=== PATIENT | female | born 1965 | race Caucasian/White ===

== ENCOUNTER 2024-09-11 11:08 | Outpatient (CLI) | payer BC, SELFPAY ==
--- OUTSIDE RECORDS SUMMARY | 2024-09-11 11:37 | XMS_ITS | Referral Summary ---
Author Organization [facility] at the [facility] Address [address] [place] [address] Care Team Providers Care Tick Eradicator Name Role Phone Tyrell Morales MD Primary Care Provider Social History Tobacco Use Types Packs/Day Years Used Date Smoking Tobacco: Never Assessed Comments Unknown Sex and Gender Information Value Date Recorded Sex Assigned at Not on file Legal Sex Female 11:13 AM BATCHING OPERATOR Gender Identity Female 11/13/2023 10:18 AM CDT Sexual Orientation Not on file Plan of Treatment Not on file Procedures Procedure Name Priority Date/Time Associated Diagnosis Comments SCREENING MAMMOGRAM BILATERAL W JACEK W IMPLANTS Schedule Routine, Read Routine (OP Routine) 09/29/2023 7:51 AM BATCHING OPERATOR Encounter for screening mammogram for malignant neoplasm of breast from Last 3 Months or Most Recently Relevant to Health Maintenance Results * Screening Mammogram Bilateral W Jacek W Implants (09/29/2023 7:51 AM BATCHING OPERATOR) Anatomical Region Laterality Modality Breast Bilateral Mammography 10/09/2023 4:01 PM CDT Impressions 10/09/2023 4:01 PM CDT There is no mammographic evidence of malignancy. A 1 year screening mammogram is recommended. BI-RADS: 1 - Negative. The patient has been or will be contacted. The patient will be entered into a reminder system with a target due date of 1 year for her next mammogram. Electronically signed by: HA SALAZAR Yamileth 10/09/2023 4:01 PM CDT EXAMINATION: SCREENING MAMMOGRAM BILATERAL W JACEK W IMPLANTS ORDERING HEALTHCARE PROVIDER: TYRELL MORALES HISTORY: Routine screening mammography. COMPARISON: 09/20/2022, 09/15/2021, 09/14/2020. TECHNIQUE: CC and MLO views of both breasts, including implant-displaced views, were obtained with digital technique using digital breast tomosynthesis with C view. Computer aided detection was utilized. FINDINGS: DENSITY: The breasts are extremely dense, which lowers the sensitivity of mammography. BREASTS: There are bilateral subglandular silicone breast implants with extensive capsular calcifications. The presence of implants decreases sensitivity of mammography. There is no new suspicious finding in either breast on mammogram. us Tyrell Morales MD IMG MAMMO PROCEDURES Fi nal Result from Last 3 Months or Most Recently Relevant to Health Maintenance Insurance [place] [employer] Care Teams Tick Eradicator Relationship Specialty Start Date End Date Tyrell Morales MD [address] [place] [address] [address] PCP - General Family Medicine 07/31/23
--- OUTSIDE RECORDS SUMMARY | 2024-09-11 11:37 | XMS_ITS | Clinical Summary ---
Author Organization [facility] at the [facility] Address [address] [place] [address] Care Team Providers Care Local Az Truck Driver Name Role Phone yTrell Morales MD Primary Care Provider Surgical History Surgery Date Site/Laterality Comments HYSTERECTOMY Family History Medical History Relation Name Comments Breast cancer Paternal Grandmother Relation Name Status Comments Paternal Grandmother Social History Tobacco Use Types Packs/Day Years Used Date Smoking Tobacco: Never Assessed Comments Unknown Sex and Gender Information Value Date Recorded Sex Assigned at Not on file Legal Sex Female 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 CLERK Gender Identity Female 11/13/2023 10:18 AM CDT Sexual Orientation Not on file Obstetrics History Para Term AB IAB SAB Ectopic Multiple Livin g Live Births 0 0 0 0 0 0 0 0 0 0 0 Plan of Treatment Health Maintenance Due Date Last Done Comments Colon Cancer Screening-Colonoscopy 1966 Depression Screening 1966 Hepatitis C Screening 1966 Hepatitis B Screening 1984 Regular Well Visit/Exam 18-64 1984 Zoster Vaccine (1 of 2) 2016 Pneumococcal vaccine <65 (2 of 2 - PCV) 05/15/2016 05/15/2015, 07/23/2012 Covid-19 Vaccine (2023-2 5 season) 2024 07/02/2021, 06/08/2021 Influenza Vaccine (#1) 2024 0, 05/16/2019, 04/22/2018, Additional history exists Breast Cancer Screening-Mammogram 09/28/2024 09/29/2023, 09/20/2022, 09/16/2021, Additional history exists DTaP/Tdap/Td Vaccine (5 - Td or Tdap) 04/12/2028 04/12/2018, 12/19/2016, 07/23/2015, Additional history exists Procedures Procedure Name Priority Date/Time Associated Diagnosis Comments SCREENING MAMMOGRAM BILATERAL W JACEK W IMPLANTS Schedule Routine, Read Routine (OP Routine) 09/29/2023 7:51 AM PAPER SAMPLE CLERK Encounter for screening mammogram for malignant neoplasm of breast from Last 3 Months or Most Recently Relevant to Health Maintenance Results * Screening Mammogram Bilateral W Jacek W Implants (09/29/2023 7:51 AM PAPER SAMPLE CLERK) Anatomical Region Laterality Modality Breast Bilateral Mammography [...] her next mammogram. Electronically signed by: HA Carson 10/09/2023 4:01 PM CDT EXAMINATION: SCREENING MAMMOGRAM [...] [place] Care Teams Local Az Truck Driver Relationship Specialty Start Date End Date Tyrell Morales MD [address] [place] [address] [address] [place] [address] PCP - General Family Medicine 07/31/23
--- OUTSIDE RECORDS SUMMARY | 2024-09-11 11:38 | XMS_ITS | Continuity of Care Document ---
Author Organization [facility] Address [facility] [place] [address] Phone Care Team Providers Care Product Marketing Analyst Name Role Phone Roseanna Gracia OD Unavailable Unavailable Allergies, Adverse Reactions, Alerts Substance Reaction Status Criticality codeine Active No Information Medications Medication Instructions Dosage Effective Dates (start - stop) Status Comments alprazolam 0.25 mg tablet take 1 tablet by oral route 3 times every day 0.25 MG - Active estradiol 1 mg tablet take 1 tablet by o ral route every day 1 MG - Active sumatriptan 100 mg tablet take 1 tablet by oral route after onset of migraine; may repeat after 2 hours if headache returns,not to exceed 200mg in 24hrs 100 MG - Active Procedures Procedure Date Refraction Contact Lens Service VISION Level 3 Eye exam established comprehensive Advance Directives Directive Yes / No Effective Date File Name No Information Encounters Encounter Description Practice Location Reason(s) For Visit Diagnoses Date Provider Providers Copied on Encounter [facility] , [address] [place] [address], [id number], [place] tel:[phone] [facility] No Information Samia Condon. [address] [place], [place], [id number], [place]. tel:[phone] [facility] , [address] [place] [address], [id number], [place] tel:[phone] [facility] Vision Exam (chief complaint) Myopia, bilateral Mo Hernandez. [address] [place], [place], [id number], [place]. tel:[phone] Referring Provider: Mary Hassan, [address] [place], [address]. tel:[phone] [facility] , [address] [place], [place], [id number], [place] tel:[phone] [facility] Jess[facility] Moscoso Myopia, bilateral Sandra OD Humphrey. [address] [place], [place], [id number], [place]. tel:[phone] Family History Family Member Type Diagnosis Age At Onset No Information Payers Payer name Insurance type Covered constitution party ID Authorjose manuel lynn(s) VSP OD ONLY CI [id number] Social History Type Description Quantity Date Captured Comments Alcohol Use Details Unknown Caffeine Use Details Unknown Tobacco Use Status No Information Smoking Status No Information Sex Female Chief Complaint And Reason For Visit No Information Reason For Referral Reason For Referral No Information History Of Present Illness Encounter Date Complaint History Of Prese nt Illness Vision Exam The 57 year old patient presents for evaluation of Vision Exam in the [facility]. Still doing good with Clariti 1 day MF OD -2.25 H/ OS -3.50 H for distance/ computer. Denies floaters. No use of drops. Also still has glasses and takes off to read. BP 118/69. Functional Status Date Functional Assessmen t No Information Instructions Date Instruction Additional Infor mation Return in 1 year CEE Related to Myopia, bilateral Impression/Plan Related to Myopi a, bilateral Assessments Type Assessment Date No Information Patient Care Teams Name Effective Dates (start - stop) Status Members No Information
--- OUTSIDE RECORDS SUMMARY | 2024-09-11 11:38 | XMS_ITS | Data Portability ---
Author Organization [place] - [address] [facility] Address [address] [place] [address] Assessment No assessment recorded. Plan of Treatment Reminders Order Date Submit Date Provider Last Modified By Organization Details Last Modified Time Details Appointments None recorded. Lab None recorded. Referral None recorded. Procedures None recorded. Surgeries None recorded. Imaging None recorded. Medication Orders estradiol 1 mg tablet 2020 021 [id number], [id number], [place], [place], [id number], 1 11:51:09 estradiol 1 mg tablet 2019 [id number], [id number], [place], [place], [id number], 0 14:07:32 Patient TargetsNo targets recorded. Patient InstructionsNo instructions recorded. Reason for Referral None Reported. Results Created Date Observation Date Name Description Value Unit Range Abnormal Flag Note LastModifiedBy Organization Detail LastModifiedTime 09/21/1909/20/2022 MAMMO , scree leah, digit al, bilat eral No observ ation record ed. [facility] [place], [address], 09/24/2022 09:18:39 Result Notes None recorded. Problems No Known Problems Procedures Surgical History Date Name Laterality Status Provider Name and Address Organization Details Recorded Time 05/23/20 21 Date of Last Mammogram completed Grisel Treviño CMA [address] 04/05/2021 11:39:20 10/22/19 18 Date of Last Pap Smear completed Anna Gutierrez CMA ([facility]) [address] 03/31/2020 13:14:20 07/23/19 18 Date of Last Colonoscopy completed Anna Gutierrez CMA ([facility]) [address] 03/31/2020 13:13:29 breast augmentation completed Jazlyn Gutierrez TITLE I MATH TUTOR ([facility]) [address] 03/31/2020 13:12:06 Cholecystectomy completed Anna Gutierrez CMA ([facility]) [address] 03/31/2020 13:12:23 Hysterectomy completed Anna Gutierrez CMA ([facility]) [address] 03/31/2020 13:12:56 Imaging Results Imaging Date Name Status LastModified by Organiz ation Details LastModified Time 09/20/2022 MAMMO, screening, digital, bilateral completed [facility] [address] [place], [address], 09/24/2022 09:18:39 Procedure Notes None recorded. Medical Equipment None Reported. Allergies Allergen ID Allergen Name Allergen Category Reaction Reaction Severity Criticality Documentation Date Start Date Code Code System Note Provider Name and Address Organization Details Recorded Time 957533 codeine medicatio n Not available Not available Not available 03/31/2020 2670 RxNorm Anna Gutierrez TITLE I MATH TUTOR ([facility]) [place], [address] 0 13:10:35 Medications Name Sig Start Date Stop Date Status Note LastModified by Organization Details LastModified Time fluconazole 150 mg tablet TAKE 1 TABLET BY MOUTH EVERY DAY FOR 3 DAYS active Not Available Not Available No t Available benzonatate 200 mg capsule TAKE 1 CAPSULE BY MOUTH THREE TIMES DAILY FOR 10 DAYS active Not Available Not Available No t Available sumatriptan 100 mg tablet TK 1 T PO AOS OF MIGRAINE. MAY REPEAT IN 2 H PRN active Not Available Not Available No t Available ciprofloxac in 500 mg tablet TAKE 1 TABLET BY MOUTH EVERY 12 HOURS active Not Available Not Available No t Available sulfamethox azole 800 mg-trimetho prim 160 mg tablet 03/31 completed Not Available Not Available Not Available alprazolam 0.25 mg tablet TAKE 1 TABLET BY MOUTH FOUR TIMES DAILY NEEDED active Not Available Not Available No t Available estradiol 1 mg tablet TAKE 1 TABLET BY MOUTH EVERY DAY active Not Available Not Available No t Available cephalexin 500 mg capsule TAKE 1 CAPSULE BY MOUTH TWICE DAILY FOR 7 DAYS active Not Available Not Available No t Available albuterol sulfate HFA 90 mcg/actuati on aerosol inhaler INL 2 PUFFS PO Q 4 TO 6 H active Not Available Not Available No t Available amoxicillin 875 mg-potassiu m clavulanate 125 mg tablet 03/31 completed Not Available Not Available Not Available Fish Oil 1,000 mg (120 mg-180 mg) capsule Take 1 capsule every day by oral route. active Not Available Not Available No t Available Fluarix Quad (PF) 60 mcg (15 mcg x 4)/0.5 mL IM syringe ADM 0.5ML IM UTD 03/31 completed Not Available Not Available Not Available Paxlovid 300 mg (150 mg x 2)-100 mg tablets in a dose pack TAKE 3 TABLETS BY MOUTH TWICE DAILY FOR 5 DAYS DIRECTED active Not Available Not Available No t Available Vitals Date Recorded Body weight Body mass index (BMI) Body height Systolic blood pressure Diastolic blood pressure Provider Name and Address Organization Details Last Updated DateTime 03/31/2020 63956.69 g 22.5 kg/m2 165.1 cm 110 mm[Hg] 80 mm[Hg] Grisel Treviño CMA [address] 0 13:59:39 Date Recorded Body weight Body mass index (BMI) Body height Systolic blood pressure Diastolic blood pressure Provider Name and Address Organization Details Last Updated DateTime 04/05/2021 48831.3 g 20.5 kg/m2 165.1 cm 118 mm[Hg] 68 mm[Hg] Grisel Treviño CMA [address] 1 11:39:06 Social History Question Answer Notes LastModified by Organizat ion Details LastModified Time Tobacco Smoking Status Never Smoker Anna Gutierrez CMA ([facility]) null[address] 03/31/2020 13:15:17 What Is Your Level Of Alcohol Consumption? Occasional Information not available 03/31/2020 Which Illicit Or Recreational Drugs Have You Used? 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 No Information not available 03/31/2020 Presence Of Domestic Violence No Information not available 03/31/2020 Marital Status Single Informatio n not available 03/31/2020 Sex: Unknown Functional Status Question Answer Note LastModified by Organization D etails LastModified Time What is your exercise level? Moderate Information not available 03/31/2020 Mental Status None recorded. Family History Relationship Description Onset Age of this Age Resolved Age Notes LastModified by Organization Details LastModified Time Father Alcoholism [email or web address] Not avai lable 03/31/2020 14:00:56 Mother Alcoholism [email or web address] Not avai lable 03/31/2020 14:00:56 Mother Heart disease [email or web address] Not available 03/2020 14:02:02 Maternal Aunt Alzheimer's disease [email or web address] Not available 03/2020 14:01:11 Maternal Aunt Depressive disorder [email or web address] Not available 03/2020 14:01:52 Maternal Aunt Migraine [email or web address] Not available 03/31/2020 14:02:32 Paternal Aunt Alzheimer's disease [email or web address] Not available 03/2020 14:01:11 Paternal Aunt Blood coagulation disorder [email or web address] Not available 03/2020 14:01:24 Paternal Aunt Kidney disease [email or web address] Not available 03/2020 14:02:25 Paternal Aunt Neuropathy [email or web address] N ot available 03/31/2020 14:02:49 Paternal Aunt Cerebrovascu lar accident [email or web address] Not available 0 03/31/2020 14:02:58 Paternal Grandmother Malignant tumor of breast [email or web address] Not available 03/2020 14:01:40 Paternal Grandmother Hypertensive disorder [id number] Not available 03/2020 14:02:17 Sister Neuropathy [email or web address] Not avai lable 03/31/2020 14:02:49 Medical History Condition Response UTI Y Anesthesia complications Y Anxiety/Depression Y Headaches or Migraines Y Immunizations Y Abnormal Pap Smear Y Mammograms Y Asthma Y Allergies Y Gynecological History Statement/Question Response Date of Last Pap Smear 10/21/2017 Total lifetime number of sexual partners ? 2 Abnormal Pap Y STD/PID N Hormone Replacement Therapy Y Date of Last Mammogram 05/23/2021 Breast Lump no Age at Menarche 17 Current Control Method Hysterectom y History of Abnormal Pap Smear Y Date of Last Colonoscopy 07/23/2017 Abnormal Pap Y Date of Last Pap Smear 10/21/2017 Obstetrics History GPAL:G 0 P 0 0 0 0 Past Encounters Encounter ID Performer Location Encounter Start Date Encounter Closed Date Diagnosis/Indication Diagnosis SNOMED-CT Code Diagnosis ICD10 Code Diagnosis Note [id number] Mary Anne Grace NP [facility] [address] [place] [address] 03/31/2020 12:52:56 03/31/2020 14:10:26 Gynecologic examination 58728586 Z01.419 Pap smear with cotesting deferred per ASCCP guidelines Yearly MMG scheduled for May Annual bloodwork to be managed by her PCP Colonoscop y done at 51-normal. Repeat in 10 years. PCP to manage. Daily MV with Calcium and vitamin D encouraged . Calcium 1200 mg (in divided doses) and Vitamin D 800 IU (in divided doses) encouraged . Hormone re placement therapy 481247399 Z79.890 Pt doing well with current dose. Aware of risks, benefits and side effects. Plan to continue. [id number] Mary Anne Grace NP [facility] [address] [place] [address] 04/05/2021 11:12:32 04/05/2021 11:54:05 Gynecologic examination 71038825 Z01.419 Pap smear deferred per ASCCP guidelines Annual bloodwork to be managed by her PCP Colonoscop y - PCP to manage. Hormone re placement therapy 264762049 Z79.890 Does well with HRT- denies any problems. Aware of risks, benefits and potential side effects - will send refill. Screening for malignant neoplasm of breast 393985595 Z12.39 Yearly in May - managed by PCP Health Concerns Section Related Observation LastModified by Organization Detai ls LastModified Time None Recorded Concern Status LastModified by Organization Details LastModified Time None Recorded Advance Directives Directive None Recorded Payers Encounter Date Sequence Insurance Name Policy Number Policy Denis Covered Member ID Denis Member ID Guarantor Name 03/31/2020 1 [place] Angie Washington [id number] Angie Szymanskihn 04/05/2021 1 [place] Angie Washington [id number] Angie Washington Notes Date Note Type Note Provider Name and Address Organization Details Recorded Time 03/31/2020 text/html Pt presents toda y for a WWE. 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 On estrogen-has been doing well with it. Has had to increase it 1 year ago, Denies any questions or concerns. Denies pelvic pain, abnormal vaginal bleeding, or urinary concerns. SA without concerns. colonoscopy next 10 yrs. Mary Anne Grace NP [address] [facility], [place], [address], [facility] [place] 03/31/2020 14:12:28 04/05/2021 text/html Pt presents toda y for a WWE. 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 +SA partner: samedyspareunia: denies mammogram: 05/2020 (millennium)colono scopy next 10 yrs. Mary Anne Grace NP [address] [facility], [place], [address], [facility] [place] 04/05/2021 11:58:49 OBGyn Episode No OBEpisode recorded.
--- OUTSIDE RECORDS SUMMARY | 2024-09-11 11:38 | XMS_ITS | Patient Health Summary ---
Author Organization [facility] Address [address] [place] [address] Care Team Providers Care Real Estate Development Manager Name Role Phone Yaz Jimenez MD Primary Care Provider [phone] Note from [facility],non-owned Affiliates and Associated Physician Practices is amultiple site organization consisting of ambulatory clinics and hospital sitesin [place], [place], [place] and [place]. This disclosure is being madepursuant to the Care Everywhere program and may not contain all information available regarding this patient. Last updated 18.[facility] Allergies * Codeine(N&V) Medications * Be aware that medications may not be up to date on this document. Alwaysverify current medications with the patient. * multivitamin daily (THERAGRAN) tablet Take 1 Tab by mouth daily with food. * ALPRAZolam (XANAX) 0.25 MG tablet Take 0.25 mg by mouth nightly as needed. * SUMAtriptan (IMITREX) 100 MG tablet Take 100 mg by mouth once as needed. Indications: Migraine Headache * Biotin 2.5 MG tablets Take 2.5 mg by mouth once daily. * oxycodone-acetaminophen (PERCOCET) 5-325 MG tablet(Started 08/29/2012) Take 1 Tab by mouth every 6 hours as needed for Pain. * ibuprofen (MOTRIN) 600 MG tablet(Started 08/29/2012) Take 1 Tab by mouth every 6 hours as needed for Pain. * docusate sodium (COLACE) 100 MG capsule(Started 08/29/2012) Take 1 Cap by mouth 2 times daily. 1 refill left Social History Tobacco Use Types Packs/Day Years Used Date Smoking Tobacco: Never Alcohol Use Standard Drinks/Week Comments Yes 0 (1 standard drink = 0.6 oz pur e alcohol) Sex and Gender Information Value Date Recorded Sex Assigned at Not on file Gender Identity Not on file Sexual Orientation Not on file Last Filed Vital Signs Vital Sign Reading Time Taken Comments Blood Pressure 117/62 08/29/2012 9:43 AM VOLUNTEER FIREFIGHTER Pulse 72 08/29/2012 9:43 AM VOLUNTEER FIREFIGHTER Temperature 36.4 C (97.5 F) 08/29/2012 9:43 AM VOLUNTEER FIREFIGHTER Respiratory Rate 20 08/29/2012 9:43 AM VOLUNTEER FIREFIGHTER Oxygen Saturation 98% 08/29/2012 9:43 AM VOLUNTEER FIREFIGHTER Inhaled Oxygen Concentration - - Weight 63.5 kg (140 lb) 08/28/2012 9:16 AM VOLUNTEER FIREFIGHTER Height 165.1 cm (5' 5 ) 08/28/2012 9:16 AM VOLUNTEER FIREFIGHTER Body Mass Index 23.3 08/28/2012 9:16 AM VOLUNTEER FIREFIGHTER Procedures * CARDIAC RHYTHM STRIP ORDER(Performed 09/04/2012) * PATHOLOGY/GENETICS HISTORICAL-ONBASE(Performed 08/29/2012) * PATHOLOGY TISSUE EXAM (STL)(Performed 08/28/2012) * LAPAROSCOPIC TOTAL HYSTERECTOMY (TLH)(Performed 08/28/2012) Performed for Excessive or frequent menstruation * CBC W/O DIFFERENTIAL(Performed 08/28/2012) * HCG URINE QUALITATIVE - POINT OF CARE(Performed 08/28/2012) * BLOOD TYPE VERIFICATION(Performed 08/22/2012) * TYPE + SCREEN PANEL(Performed 08/22/2012) Performed for Preoperative examination, unspecified * CBC W AUTO DIFFERENTIAL(Performed 08/22/2012) Performed for Preoperative examination, unspecified * PATHOLOGY/GENETICS HISTORICAL-ONBASE(Performed 07/12/2012) * PATHOLOGY/GENETICS HISTORICAL-ONBASE(Performed 07/12/2012) Results * CARDIAC RHYTHM STRIP ORDER (09/04/2012 7:15 AM VOLUNTEER FIREFIGHTER) Narrative 09/04/2012 7:15 AM VOLUNTEER FIREFIGHTER Procedure Note Document, Scanned - 09/04/2012 7:15 AM CST Scanned Document CARDIAC SERVICES ORD ERABLES * PATHOLOGY/GENETICS HISTORICAL-ONBASE (08/29/2012) Only the most recent of3 resultswithin the time period is included. 08/29/2012 Narrative [facility] - 08/30/2012 12:23 PM VOLUNTEER FIREFIGHTER Historical Provider LAB - CHEMISTRY Judi BELL [facility] [address] * GROSS + MICRO EXAM (STL) (08/28/2012 12:30 PM VOLUNTEER FIREFIGHTER) Case Report Surgical Pathology Report Case: [id number] -- Authorizing Provider: Stacy arrieta, Ordering Provider: Stacy arrieta MD MD Ordering Location: [facility] Collected: 08/28/2012 12:30 PM Pathologist: Jamie Bañuelos MD Received: 08/28/2012 1:16 PM Signed Out: 08/29/2012 2:28 PM (Final) Specimen: Uterus w Tube and Ovary, uterus,cervix,bi l fallopian tubes 08/29/2012 2:28 PM VOLUNTEER FIREFIGHTER [facility] Final Diagnosis A. Uterus, cervix, hysterectomy: - Chronic cervicitis - Nabothian cyst Uterus, endometrium, hysterectomy: - Proliferative endometrium Uterus, myometrium, hysterectomy: - Leiomyoma Uterus, serosa, hysterectomy: - No pathologic diagnosis Fallopian tubes, right and left, bilateral salpingectomy: - No pathologic diagnosis YC/LISSY/timbo 08/29/2012 2:28 PM VOLUNTEER FIREFIGHTER [facility] Gross Description Submitted fixed in formalin in one container labeled with the patient's name Angie [place] and uterus, cervix, bilateral fallopian tubes, is a 100 gram uterus measuring 8 x 5.5 x 4 cm. Submitted separately in the same container are bilateral fallopian tubes each measuring 2.5 x 0.6 and 3.8 x 0.7 cm. The exocervix [3.5 x 2.7 cm] is covered by pink-shanks smooth mucosa with focal hemorrhage. There is a dark brown-shanks polypoid lesion protruding from the exocervix measuring 1.1 x 1 x 0.5 cm. The endocervical canal [4 cm in length with a diameter of 1.8 cm] is dilated and filled with hemorrhagic mucinous material. The endometrial cavity [2 cm from cornua to cornua and 3.5 cm in length] is covered by pink-shanks hemorrhagic endometrium with a average thickness of 0.3 cm. The myometrium has a maximal thickness of 1.8 cm and is grossly unremarkable. There serosa is smooth without adhesions. The bilateral fallopian tubes are patent and grossly unremarkable. Sewage Plant Attendant sections are submitted as follows: A1 - Anterior cervix with polypoid protrusion and intrauterine hemorrhage. A3 - Posterior lower uterine segment. A4 - Anterior endometrium. A5 - Posterior myometrium. A6 - Fallopian tubes. YC/mal 08/29/2012 2:28 PM VOLUNTEER FIREFIGHTER [facility] Microscopic Description Sections of the cervix show chronic inflammatory infiltrate with no evidence of dysplasia or malignancy. Some of the endocervical glands are cystically dilated. The endometrium is proliferative with no evidence of hyperplasia or malignancy. Myometrium has a focus of intramural leiomyoma with no evidence of increased mitosis, nuclear atypia or necrosis. Serosa is unremarkable. The fallopian tubes are unremarkable. YC/LISSY/timbo 08/29/2012 2:28 PM [facility] Synoptic Report 08/29/2012 2:28 PM [facility] Miscellaneous samples (specimen) HYSTERECTOMY AND BILATERAL SALPINGO-OOPHORECTO MY SPECIMEN / Unknown 08/28/2012 12:30 PM VOLUNTEER FIREFIGHTER 08/28/2012 1:16 PM VOLUNTEER FIREFIGHTER Stacy Mejias MD LAB - PATHOL OGY/CYTOLOGY ORDERABLES [facility] [address] [place] [address] * (ABNORMAL) CBC W/O DIFFERENTIAL (08/28/2012 9:15 AM VOLUNTEER FIREFIGHTER) WBC 15.8(H) 4.4 - 10.7 x10^9/L 08/28/2012 9:37 AM [facility] RBC 4.78 3.80 - 5.20 x10^12/L 08/28/2012 9:37 AM [facility] Hemoglobin 14.8 12.0 - 15.6 g/dL 08/28/2012 9:37 AM [facility] Hematocrit 42.9 35.9 - 45.5 % 08/28/2012 9:37 AM [facility] MCV 89.7 80.7 - 98.3 fl 08/28/2012 9:37 AM [facility] MCH 31.0 26.7 - 34.0 pg 08/28/2012 9:37 AM [facility] MCHC 34.5 30.8 - 35.9 gm/dL 08/28/2012 9:37 AM [facility] Platelet Count 304 153 - 416 x10^9/L 08/28/2012 9:37 AM [facility] RDW-CV 12.4 12.1 - 14.9 % 08/28/2012 9:37 AM [facility] MPV 9.8 9.4 - 12.9 fl 08/28/2012 9:37 AM [facility] Blood specimen (specimen) BLOOD SPECIMEN / Unknown 08/28/2012 9:15 AM VOLUNTEER FIREFIGHTER 08/28/2012 9:17 AM VOLUNTEER FIREFIGHTER Stacy Mejias MD LAB - HEMATO LOGY ORDERABLES Performing Organization Address City/State/[facility] Co de Phone Number [facility] [address] [place] [address] * HCG URINE QUALITATIVE - POINT OF CARE (IP) (08/28/2012 9:10 AM VOLUNTEER FIREFIGHTER) HCG Qual Urine negative Negative [facility] QC Verified yes Yes [facility] POC T TESTING Urine specimen (specimen) URINE / Unknown 08/28/2012 9:10 AM VOLUNTEER FIREFIGHTER Stacy Mejias MD LAB - POINT OF CARE ORDERABLES Performing Organization Address City/State/[facility] Co de Phone Number [facility] [place] [phone] * BLOOD TYPE VERIFICATION (08/22/2012 1:47 PM VOLUNTEER FIREFIGHTER) ABO O 08/22/2012 1:47 PM VOLUNTEER FIREFIGHTER [facility] Rh Type Negative 08/22/2012 1:47 PM VOLUNTEER FIREFIGHTER [facility] Miscellaneous samples (specimen) BLOOD SPECIMEN / Unknown 08/22/2012 1:05 PM VOLUNTEER FIREFIGHTER Stacy Mejias MD LAB - BLOOD BANK ORDERABLES [facility] * TYPE + SCREEN PANEL (08/22/2012 12:27 PM VOLUNTEER FIREFIGHTER) ABO O 08/22/2012 1:37 PM VOLUNTEER FIREFIGHTER [facility] Rh Type Negative 08/22/2012 1:37 PM VOLUNTEER FIREFIGHTER [facility] Comment:Historical blood typ e on record. Antibody Screen Negative 08/22/2012 1:37 PM VOLUNTEER FIREFIGHTER [facility] Miscellaneous samples (specimen) BLOOD SPECIMEN / Unknown 08/22/2012 12:27 PM VOLUNTEER FIREFIGHTER 08/22/2012 12:38 PM VOLUNTEER FIREFIGHTER Stacy Mejias MD LAB - BLOOD BANK ORDERABLES [facility] * (ABNORMAL) CBC W AUTO DIFFERENTIAL (08/22/2012 12:27 PM VOLUNTEER FIREFIGHTER) WBC 11.4(H) 4.4 - 10.7 x10^9/L 08/22/2012 12:49 PM [facility] RBC 4.76 3.80 - 5.20 x10^12/L 08/22/2012 12:49 PM [facility] Hemoglobin 14.7 12.0 - 15.6 g/dL 08/22/2012 12:49 PM [facility] Hematocrit 43.1 35.9 - 45.5 % 08/22/2012 12:49 PM [facility] MCV 90.5 80.7 - 98.3 fl 08/22/2012 12:49 PM [facility] MCH 30.9 26.7 - 34.0 pg 08/22/2012 12:49 PM [facility] MCHC 34.1 30.8 - 35.9 gm/dL 08/22/2012 12:49 PM [facility] RDW-CV 12.5 12.1 - 14.9 % 08/22/2012 12:49 PM [facility] MPV 9.8 9.4 - 12.9 fl 08/22/2012 12:49 PM [facility] Neutrophils % 61 44 - 73 % 08/22/2012 12:49 PM [facility] Lymphocytes % 27 20 - 43 % 08/22/2012 12:49 PM [facility] Monocytes % 9 5 - 13 % 08/22/2012 12:49 PM [facility] Eosinophils % 2 0 - 6 % 08/22/2012 12:49 PM [facility] Basophils % 1 0 - 2 % 08/22/2012 12:49 PM [facility] Immature Granulocytes 0.3 0 - 1 % 08/22/2012 12:49 PM [facility] Neutrophil Absolute 6.92 2.01 - 7.14 x10^9/L 08/22/2012 12:49 PM [facility] Lymphocytes Absolute 3.10 1.07 - 3.94 x10^9/L 08/22/2012 12:49 PM [facility] Monocytes Absolute 0.99 0.26 - 1.07 x10^9/L 08/22/2012 12:49 PM [facility] Eosinophils Absolute 0.22 0 - 0.47 x10^9/L 08/22/2012 12:49 PM [facility] Basophils Absolute 0.09(H) 0 - 0.08 x10^9/L 08/22/2012 12:49 PM [facility] Immature Granulocytes Absolute 0.03 0.00 - 0.06 x10^9/L 08/22/2012 12:49 PM [facility] nRBC Auto 0 08/22/2012 12:49 PM [facility] Platelet Count 317 153 - 416 x10^9/L 08/22/2012 12:49 PM [facility] Blood specimen (specimen) BLOOD SPECIMEN / Unknown 08/22/2012 12:27 PM VOLUNTEER FIREFIGHTER 08/22/2012 12:38 PM [facility] Stacy Mejias MD LAB - HEMATO LOGY ORDERABLES [facility] [address] [place] [address] Care Teams Real Estate Development Manager Relationship Specialty Start Date End Date Yaz Jimenez MD PCP - General Internal Medicine 08/20/12
--- OUTSIDE RECORDS SUMMARY | 2024-09-11 11:38 | XMS_ITS | Encounter Summary ---
Author Organization [facility] Address [address] [place] [address] Care Team Providers Care Surgical Specialist Name Role Phone Yaz Jimenez MD Primary Care Provider [phone] None, Provider Primary Care Provider Hectora aaron Encounter Details Date Type Department Care Team (Latest Contact Info) Description 05/28/2018 Abstract [facility] , Renae Negrete MD Social History Tobacco Use Types Packs/Day Years Used Date Smoking Tobacco: Never Assessed Comments Unknown Sex and Gender Information Value Date Recorded Sex Assigned at Not on file Legal Sex Female 7:07 PM CDT Gender Identity Not on file Sexual Orientation Not on file documented as of this encounter Plan of Treatment Not on file documented as of this encounter Visit Diagnoses Not on filedocumented in this encounter Care Teams Surgical Specialist Relationship Specialty Start Date End Date Yaz Jimenez MD PCP - General INTERNAL MEDICINE 05/15/18 06/18/23 None, ProviderMD PCP - General UNKNOWN PHYSICIAN SPECIALTY 06/19/23 documented as of this encounter
--- OUTSIDE RECORDS SUMMARY | 2024-09-11 11:38 | XMS_ITS | Referral Summary ---
Author Organization [facility] Address [address] [place] [address] Care Team Providers Care Main Line Assembler Name Role Phone Yaz Jimenez MD Primary Care Provider [phone] Source Comments [facility],non-owned Affiliates and Associated Physician Practices is amultiple site organization consisting of ambulatory clinics and hospital sitesin [place], [place], [place] and [place]. This disclosure is being madepursuant to the Care Everywhere program and may not contain all information available regarding this patient. Last updated 18.[facility] Allergies Active Allergy Reactions Criticality Noted Date Comments Codeine 08/21/2012 N&V Medications * Be aware that medications may not be up to date on this document. Alwaysverify current medications with the patient. Medication Sig Dispensed Refills Start Date End Date Status multivitamin daily (THERAGRAN) tablet Take 1 Tab by mouth daily with food. Active ALPRAZolam (XANAX) 0.25 MG tablet Take 0.25 mg by mouth nightly as needed. Active SUMAtriptan (IMITREX) 100 MG tabletIndications:Reilly marleny Take 100 mg by mouth once as needed. Indications: Migraine Headache Active Biotin 2.5 MG tablets Take 2.5 mg by mouth once daily. Active oxycodone-acetaminoph en (PERCOCET) 5-325 MG tablet Take 1 Tab by mouth every 6 hours as needed for Pain. 40 Tab 0 08/29/2012 Active ibuprofen (MOTRIN) 600 MG tablet Take 1 Tab by mouth every 6 hours as needed for Pain. 50 Tab 0 08/29/2012 Active docusate sodium (COLACE) 100 MG capsule Take 1 Cap by mouth 2 times daily. 60 Cap 1 08/29/2012 Active Social History Tobacco Use Types Packs/Day Years [...] Comments Blood Pressure 117/62 08/29/2012 9:43 AM STEAM SHOVEL ENGINEER Pulse 72 08/29/2012 9:43 AM STEAM SHOVEL ENGINEER Temperature 36.4 C (97.5 F) 08/29/2012 9:43 AM STEAM SHOVEL ENGINEER Respiratory Rate 20 08/29/2012 9:43 AM STEAM SHOVEL ENGINEER Oxygen Saturation 98% 08/29/2012 9:43 AM STEAM SHOVEL ENGINEER Inhaled Oxygen Concentration - - Weight 63.5 kg (140 lb) 08/28/2012 9:16 AM STEAM SHOVEL ENGINEER Height 165.1 cm (5' 5 ) 08/28/2012 9:16 AM STEAM SHOVEL ENGINEER Body Mass Index 23.3 08/28/2012 9:16 AM STEAM SHOVEL ENGINEER Plan of Treatment Not on file Advance Directives * FULL RESUSCITATION (Latest Code Status on File) Date Activated Date Inactivated Comments 08/28/2012 3:01 PM 08/29/2012 12:33 PM Care Teams Main Line Assembler Relationship Specialty Start Date End Date Yaz Jimenez MD PCP - General Internal Medicine 08/20/12
--- OUTSIDE RECORDS SUMMARY | 2024-09-11 11:38 | XMS_ITS | Clinical Summary ---
Author Organization [facility] Address [address] [place] [address] Care Team Providers Care Lead Trainer Name Role Phone Yaz Jimenez MD Primary Care Provider [phone] Source Comments [facility]non-owned Affiliates and Associated Physician Practices is amultiple site organization consisting of ambulatory clinics and hospital sitesin [place], [place], [place] and [place]. This disclosure is being madepursuant to the Care Everywhere program and may not contain all information available regarding this patient. Last updated 18.[facility] Allergies Active Allergy Reactions Criticality Noted Date [...] Comments Blood Pressure 117/62 08/29/2012 9:43 AM BINDING DYER Pulse 72 08/29/2012 9:43 AM BINDING DYER Temperature 36.4 C (97.5 F) 08/29/2012 9:43 AM BINDING DYER Respiratory Rate 20 08/29/2012 9:43 AM BINDING DYER Oxygen Saturation 98% 08/29/2012 9:43 AM BINDING DYER Inhaled Oxygen Concentration - - Weight 63.5 kg (140 lb) 08/28/2012 9:16 AM BINDING DYER Height 165.1 cm (5' 5 ) 08/28/2012 9:16 AM BINDING DYER Body Mass Index 23.3 08/28/2012 9:16 AM BINDING DYER Plan of Treatment Health Maintenance Due Date Last Done Comments COLOGUARD (AGES 45-75) - COL ON CA SCREENING 1966 COLON MONITORING 1966 COLONOSCOPY - COLON CA SCREENING 1966 CT COLONOGRAPHY - COLON CA SCREENING 1966 Colorectal Cancer Screening 1966 FIT - COLON CA SCREENING 1966 FLEX SIG - COLON CA SCREENING 1966 LIPID TESTING 1966 MAMMOGRAM 1966 PAP SMEAR 1966 HIV SCREENING 1981 HEPATITIS C SCREENING 05/03/1984 DTAP/TDAP/TD VACCINES (1 - Tdap) 1985 HEPATITIS B VACCINE (1 of 3 - 19+ 3-dose series) 1985 PNEUMOCOCCAL VACCINE 50+ (1 of 1 - PCV) 2016 ZOSTER VACCINE (1 of 2) 2016 COVID-19 VACCINE ( - 2023-2 5 season) 2024 INFLUENZA VACCINE (#1) 2024 DEPRESSION SCREENING 07/23/2024 HIB VACCINE Aged Out No longer eligi ble based on patient's age to complete this topic HPV VACCINE Aged Out No longer eligi ble based on patient's age to complete this topic MENINGOCOCCAL (Group B) VACCINE Aged Out No longer eligible based on patient's age to complete this topic MENINGOCOCCAL VACCINE Aged Out No sneha tabitha eligible based on patient's age to complete this topic PNEUMOCOCCAL VACCINE Aged Out No long er eligible based on patient's age to complete this topic Advance Directives * FULL RESUSCITATION (Latest Code Status on File) Date Activated Date Inactivated Comments 08/28/2012 3:01 PM 08/29/2012 12:33 PM Care Teams Lead Trainer Relationship Specialty Start Date End Date Yaz Jimenez MD PCP - General Internal Medicine 08/20/12
--- OUTSIDE RECORDS SUMMARY | 2024-09-11 11:38 | XMS_ITS | Clinical Summary ---
Author Organization [facility] Address [facility] [place] [address] Care Team Providers Care Pulp Refiner Operator Name Role Phone None, Provider MD Primary Care Provider Unavaila ble Allergies Active Allergy Reactions Criticality Noted Date Comments Codeine Nausea and Vomiting,GI Upset Medium 013 Medications estradiol 1 MG tabletIndication s:Menopausal symptoms Take 1 tablet (1 mg total) by mouth daily. 90 tablet 3 11/05/2018 Active albuterol sulfate HFA (VENTOLIN HFA) 108 (90 Base) MCG/ACT inhalerIndicatio ns:History of chronic cough Inhale 2 puffs into the lungs every 4 (four) hours as needed. 8 g 11/20/2018 Active ALPRAZolam 0.25 MG tabletIndication s:Anxiety disorder, unspecified type Take 1 tablet (0.25 mg total) by mouth 3 (three) times daily as needed. 90 tablet 07/07/2019 Active SUMATRIPTAN 100 MG tabletIndication s:Migraine without aura and without status migrainosus, not intractable TAKE 1 TABLET BY MOUTH AT THE ONSET OF MIGRAINE. MAY REPEAT IN TWO HOURS IF NEEDED. 9 tablet 11 08/06/2019 Active Active Problems Problem Noted Date Diagnosed Date Menopausal symptoms 05/07/2018 BMI 24.0-24.9, adult 10/31/2017 Vitamin D deficiency 05/02/2017 Seasonal allergies 04/09/2015 Anxiety disorder 04/02/2013 Common migraine without aura 04/02/2013 Immunizations Name Administration Dates Next Due Influenza (Generic) 05/14/2017, 6,05/10/2015,05/11/2014,04/22 Influenza Adult (Generic) 05/13/2017,04/2016,05/09/2015,05/11/2014,04/23 Pneumococcal (Pneumovax 23) 05/15/2015 Tdap (Adacel) 04/12/2018 Tdap (Boostrix) 12/19/2016 Tdap (Generic) 12/20/2016,04/04/2013 Family History Medical History Relation Comments CHF Mother COPD Mother Emphysema Mother Breast Cancer Paternal Grandmother Cancer Paternal Grandmother Relation Status Comments Mother Paternal Grandmother Social History Tobacco Use Types Packs/Day Years Used Date Smoking Tobacco: Never Smokeless Tobacco: Never Tobacco Cessation:Counseling Given: No Alcohol Use Standard Drinks/Week Comments Yes 0 (1 standard drink = 0.6 oz pur e alcohol) Occasionally PHQ-2 Answer Date Recorded PHQ-2 Score 0 10/20/2018 Comments No Sex and Gender Information Value Date Recorded Sex Assigned at Not on file Legal Sex Female 7:07 PM CDT Gender Identity Not on file Sexual Orientation Not on file Last Filed Vital Signs Vital Sign Reading Time Taken Comments Blood Pressure 120/82 11/05/2018 1:17 PM CDT Pulse 85 11/05/2018 1:17 PM CDT Temperature 36.7 C (98.1 F) 11/05/2018 1:17 PM CDT Respiratory Rate 18 11/05/2018 1:17 PM CDT Oxygen Saturation 98% 11/05/2018 1:17 PM CDT Inhaled Oxygen Concentration - - Weight 67.2 kg (148 lb 3.2 oz) 11/05/2018 1:17 P M CDT Height 165.1 cm (5' 5 ) 11/05/2018 1:17 PM CDT Body Mass Index 24.66 11/05/2018 1:17 PM CDT Plan of Treatment Health Maintenance Due Date Last Done Comments Annual Physical 1969 Hepatitis C 1984 Hepatitis B Vaccines (1 of 3 - 19+ 3-dose series) 1985 Mammogram Screening 2006 Zoster Vaccines (1 of 2) 2016 COVID-19 Vaccine ( - 2023- season) 2024 Influenza Adult (#1) 2024 05/14/2017, 05/13/2017, 05/02/2016, Additional history exists Colorectal Cancer Screening Colonoscopy (10 Years) 03/21/2027 03/21/2017 DTaP, Tdap and Td Vaccines (5 - Td or Tdap) 04/12/2028 04/12/2018, 12/20/2016, 12/19/2016, Additional history exists Pneumococcal Vaccine: Pediatrics (0 to 5 Years) and At-Risk Patients (6 to 64 Years) Aged Out 05/15/2015 No longer eligible based on patient's age to complete this topic Meningococcal B Vaccine Aged Out No l onger eligible based on patient's age to complete this topic Meningococcal Vaccine Aged Out No sneha atbitha eligible based on patient's age to complete this topic RSV Immunizations Under 20 Months Aged Out No longer eligible based on patient's age to complete this topic Procedures Procedure Name Priority Date/Time Associated Diagnosis Comments COLONOSCOPY Routine 03/21/2017 12:00 AM CDT from Last 3 Months or Most Recently Relevant to Health Maintenance Results * Colonoscopy (03/21/2017 12:00 AM CDT) 03/21/2017 03/21/2017 Narrative [facility] TO EPIC CONVERSION - 03/21/2017 12:00 AM CDT Documented hx of procedure Procedure Note Md Generic ConversionMD - 05/26/2018 Documented hx of procedure us Generic Conversion Md [facility] PROCEDURE ORDERABLES Final Result [facility] TO EPIC CONVERSION from Last 3 Months or Most Recently Relevant to Health Maintenance Care Teams Pulp Refiner Operator Relationship Specialty Start Date End Date None, Provider, PCP - General UNKNOWN PHYSICIAN SPECIALTY 06/19/23
[2024-09-11 20:20] LABS: Alanine Aminotransferase 25 U/L (6-35); Albumin Level 4.5 g/dL (3.5-5.1); Alkaline Phosphatase 78 U/L (38-126); Anion Gap 8 mmol/L (4-12); Aspartate Amino Transferase 48 U/L (14-36); Bilirubin,Total 0.7 mg/dL (0.2-1.3); Blood Urea Nitrogen 12 mg/dL (7-17); Calcium 9.5 mg/dL (8.4-10.2); Carbon Dioxide 29 mmol/L (22-30); Chloride 102 mmol/L (98-107); Cholesterol 166 mg/dL (0-200); Estimated Glomerular Filt Rate > 60; Glucose 88 mg/dL (65-110); HDL Direct 59 mg/dL; Potassium 4.7 mmol/L (3.4-5.0); Sodium 139 mmol/L (137-145); Triglycerides 51 mg/dL (<150)
[2024-09-11 20:23] LABS: Hematocrit 46.2 % (37.0-47.0); Mean Corpuscular HGB Conc 32.5 g/dl (32-36); Mean Corpuscular Hemoglobin 30.1 pg (26-34); Mean Corpuscular Volume 92.8 fl (80-100); Mean Platelet Volume 10.5 fl (7.4-10.4); Platelet Count Result 253 k/mm3 (150-375); Red Blood Count 4.98 M/mm3 (4.2-5.4); Red Cell Distribution Width 12.2 % (11.5-14.5)
[2024-09-11 20:31] LABS: LDL Cholesterol Direct 96 mg/dL
[2024-09-11 20:45] LABS: Thyroid Stimulating Hormone 0.563 uIU/mL (0.465-4.680)
== END 2024-09-11 11:09 | disposition home or self-care (01) ==
LOC: ANHBWCLAB 11:10
PROVIDERS: PCP Nurse Practitioner Adult Health; Visit Provider Nurse Practitioner Adult Health
DX: Z13.9 Encounter for screening, unspecified (principal)
CPT/HCPCS: 36415; 80053; 80061; 84443; 85027